=== PATIENT | female | born 1990 | race Hispanic/Latino ===

== ENCOUNTER 2018-01-16 06:05 | Emergency (ER) | payer OTHER ==
[2018-01-16] MEDS ORDERED: HYDROcodone/Acetaminophen 5/325 mg Tablet ONE (06:45)
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
== END 2018-01-16 07:20 | disposition home or self-care (01) ==
LOC: ERS 06:05
DX: S63.612A Unspecified sprain of right middle finger, initial encounter (principal); S63.614A Unspecified sprain of right ring finger, initial encounter; F32.9 Major depressive disorder, single episode, unspecified; F17.210 Nicotine dependence, cigarettes, uncomplicated; W19.XXXA Unspecified fall, initial encounter
CPT/HCPCS: 29125; 99406

== ENCOUNTER 2020-01-09 20:50 | Emergency (ER) | payer OTHER, MEDICAID ==
[~2020-01-09 20:50] MED LIST: Iopamidol 370 76% 100 ML VIAL ONE
[2020-01-09] MEDS ORDERED: Morphine 4 MG/ML VIAL ONE (21:27)
[2020-01-09] MEDS ORDERED: Ondansetron PF 4 MG/2 ML Vial ONE (21:27)
[2020-01-09] MEDS ORDERED: Boostrix 0.5 ML VIAL ONE (21:36)
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
[2020-01-09 21:53] LABS: Hemoglobin 14.8 g/dL (12.0-16.0); Mean Corpuscular HGB CONC 33.4 g/dL (32.0-36.0); Mean Corpuscular Hemoglobin 30.4 pg (27.0-31.0); Mean Corpuscular Volume 90.8 fL (78.0-98.0); Mean Platelet Volume 7.5 fL (7.4-10.4); Platelet Count 429 thou/uL (130-400); RBC Distribution Width 12.1 % (11.5-14.5); Red Blood Cell (RBC) Count 4.86 mill/uL (4.20-5.40); White Blood Cell (WBC) Count 20.1 thou/uL (4.8-10.8)
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
[2020-01-09 21:58] LABS: BHCG - Serum Negative (NEGATIVE); Pregs Control Background? CLEAR/WHITE (CLR/WHITE); Pregs Control Bar Appear? YES (CONTROL BAR)
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
[2020-01-09 21:59] LABS: PTT 26.4 sec (22.9-36.1); Prothrombin Time 12.9 sec (12.0-14.7)
[2020-01-09 22:13] LABS: Band 10 % (5-11); Lymphocytes 19 % (21-51); MDiff Complete? YES; Monocytes 5 % (0-10); Neutrophil 66 % (42-75); Platelet Morphology Comment Appears Increased
[2020-01-09 22:18] LABS: ALT (SGPT) 21 U/L (8-55); AST (SGOT) 18 U/L (5-34); Albumin 4.3 g/dL (3.5-5.0); Alcohol 152 mg/dL (Less than 10); Alkaline Phosphatase 97 U/L (40-110); Anion Gap 18 mmol/L (10-20); BUN (Urea Nitrogen) 7 mg/dL (7.0-18.7); Bilirubin, Total Less than 1.0 mg/dL (0.2-1.2); Calc. Creatinine Clearance 0 mL/min (70-130); Calcium 8.5 mg/dL (7.8-10.44); Carbon Dioxide 19 mmol/L (22-29); Chloride 109 mmol/L (98-107); Estimated GFR-MDRD Greater than 90; Glucose 113 mg/dL (70-105); Lipase 12 U/L (8-78); Potassium 3.7 mmol/L (3.5-5.1); Protein, Total 7.3 g/dL (6.0-8.3); Sodium 142 mmol/L (136-145)
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
[2020-01-10] MEDS ORDERED: Ondansetron PF 4 MG/2 ML Vial ONE (01:13)
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
== END 2020-01-10 01:45 | disposition short-term general hospital (02) ==
LOC: ERS 20:50
DX: S01.112A Laceration without foreign body of left eyelid and periocular area, initial encounter (principal); S80.11XA Contusion of right lower leg, initial encounter; F32.9 Major depressive disorder, single episode, unspecified; F17.210 Nicotine dependence, cigarettes, uncomplicated; I10 Essential (primary) hypertension; V89.2XXA Person injured in unspecified motor-vehicle accident, traffic, initial encounter
CPT/HCPCS: 36415; 70450; 70486; 71260; 72125; 74177; 80053; 80307; 83605; 83690; 84703; 85025; 85610; 85730; 86850; 86900; 86901; 90471; 90715; 96361; 96374; 96375; 96376; J2270; J2405; Q9967